=== PATIENT | female | born 2000 | race Two or more races ===

== ENCOUNTER 2018-06-30 07:05 | Day surgery (SDC) | payer MEDICAID ==
[2018-06-29 14:19] LABS: HEMATOCRIT 39.2 % (36.0-48.0); HEMOGLOBIN 13.7 g/dL (12-16); MCH 30.8 pg (26.0-34.0); MCHC 34.9 g/dL (31.0-37.0); MCV 88.1 fL (80.0-100.0); MEAN PLATELET VOLUME 10.7 fL (7.4-10.4); RBC 4.45 10x6/uL (4.00-5.40); RDW 11.7 % (11.5-14.5); WBC 7.8 10x3/uL (4.8-10.8)
[~2018-06-30] VITALS: Ht 157.5 cm; Wt 72.6 kg
--- NOTE | ~2018-06-30 | OP ---
PATIENT NAME: BECKI HIGHTOWER MEDICAL RECORD: [id number] :98 LOCATION:[facility] DATE: SURGEON: MARK NARANJO DPM DATE OF OPERATION: 06/30/2018 PREOPERATIVE DIAGNOSES: 1. Left calcaneal valgus. 2. Left forefoot varus. POSTOPERATIVE DIAGNOSES: 1. Left calcaneal valgus. 2. Left forefoot varus. PROCEDURES: 1. Medial calf slide, left foot. 2. Cotton procedure, left foot. ANESTHESIA: General with preoperative popliteal block per the anesthesia department. HEMOSTASIS: Left thigh tourniquet at 350 mmHg. PREOPERATIVE DETAILS: The patient was taken to the OR and placed on the operating table in a supine position. This was followed by induction of general anesthesia. The left extremity was then prepped and draped in usual aseptic technique followed by exsanguination and inflation of tourniquet. PROCEDURE #1: Medial calf slide, left foot: A 15-blade was used to create a 4-cm linear incision over the lateral wall of the calcaneus posterior to the distal fibula. Incision was deepened down through subcutaneous tissue being sure to avoid all vital structures. The periosteum was then visualized. A linear periosteal incision was made. At this time, the landmarks were reviewed. Sagittal saw was used to make a cut from lateral to medial through the posterior tuberosity. The posterior tuberosity was freed and mobilized medially. Once it was moved to the adequate distance medially, a Steinmann pin was placed for temporary fixation from posterior to anterior. At this time, a 3-hole plate with 1 hole crossing the fusion site was placed noting excellent rigid internal fixation as well as alignment of the rearfoot. The wound was flushed. The deep tissue was reapproximated with 2-0 Vicryl, the subcutaneous tissue with 4-0 Rapide and the skin was closed with 4-0 Rapide in a subcuticular technique followed by Dermabond. PROCEDURE #2: Cotton osteotomy, left foot: A 15-blade was made over the dorsal aspect of the medial cuneiform of the left foot. The incision was deepened down through subcutaneous tissue being sure to avoid all vital structures. Dissection was carried down to the periosteum where a linear periosteal incision was made. The dorsal aspect of the cuneiform was then freed and visualized. A sagittal saw was used to make a cut from dorsal to plantar, not going through the plantar cortex. Osteotome and mallet were used to spread the osteotomy. It was deemed necessary that a 5 mm bone graft be used to reduce the forefoot varus. Therefore, a 5 mm bone graft was placed. Wedge graft was placed in the deficit, impacted with an osteotome mallet. Excellent alignment of the forefoot and rearfoot was noted. The wound was flushed. The deep tissue was reapproximated with 2-0 Vicryl, the subcutaneous tissue with 4-0 Rapide, and the skin was closed with 4-0 Rapide in a subcuticular technique followed by OPERATIVE REPORT [id number] BECKI HIGHTOWER. Adaptic, 4 x 4 and Conform were used to dress the wound followed by application of modified [place] compression dressing. Tourniquet was deflated. POSTOPERATIVE DETAILS: The patient tolerated the procedure well and left the OR with vital signs stable and vascular status at preoperative levels. The patient was transported to recovery per anesthesia in stable condition. TRANSINT:[id number] Voice Confirmation ID: [id number] DOCUMENT ID: [id number] MARK NARANJO DPM at 0922 CC: [id number] DICTATION DATE: 06/30/18 1057 BUSINESS INTELLIGENCE ADMINISTRATOR: 06/30/18 1109 [facility] 06/30/18 [facility] [address] [place] [address]
[~2018-06-30 07:05] MED LIST: TRINESSA1 TAB PO
[2018-06-30 08:15] VITALS: BP 107/66; Ht 157.5 cm; Wt 72.6 kg
[2018-06-30 09:15] LABS: HCG URINE NEGATIVE (NEGATIVE)
== END 2018-06-30 13:50 | disposition home or self-care (01) ==
LOC: D.OPS 07:05 → D.PAN 09:00 → D.OPS 13:50
PROVIDERS: Anesthesiology; Podiatrist
DX: M21.072 Valgus deformity, not elsewhere classified, left ankle (principal); M21.172 Varus deformity, not elsewhere classified, left ankle; Z01.812 Encounter for preprocedural laboratory examination